=== PATIENT | female | born 1965 | race Caucasian/White ===

== ENCOUNTER 2019-12-31 08:00 | Outpatient (CLI) | payer OTHER ==
[~2019-12-31] VITALS: Ht 160 cm; Wt 65.9 kg
[~2019-12-31 08:00] MED LIST: GABA100C PO; PANT40TA5 PO
== END 2019-12-31 23:59 | disposition home or self-care (01) ==
LOC: OUT 08:00 → EDSTATUS 09:30 → OUT 23:59
PROVIDERS: ATTEND Obstetrics & Gynecology Female Pelvic Medicine and Reconstructive Surgery
DX: R10.2 Pelvic and perineal pain (principal); Z11.59 Encounter for screening for other viral diseases; Z53.8 Procedure and treatment not carried out for other reasons
CPT/HCPCS: 36415; 87635